=== PATIENT | male | born 1965 | race Two or more races ===

== ENCOUNTER 2024-09-30 21:36 | Inpatient (IN) | payer MEDICAID, OTHER ==
[~2024-09-30] VITALS: Ht 175.3 cm; Wt 85.4 kg
[2024-09-30 22:40] LABS: Urine Bacteria None Seen /hpf (None Seen)
[2024-09-30 22:48] LABS: Basophils # (auto) 0 10 ^3/uL (0-0.2); Basophils % (auto) 0.4 % (0.0-2.0); Eosinophils # (auto) 0 10 ^3/uL (0-0.8); Eosinophils % (auto) 0.4 % (0.0-7.0); Hematocrit 41.7 % (41.0-53.0); Lymphocytes # (auto) 2.1 10 ^3/uL (0.4-5.4); Lymphocytes % (auto) 19.2 % (10.0-50.0); Mean Corpuscular Hemoglobin 30.9 pg (28.0-32.0); Mean Corpuscular Hgb Conc. 33.5 g/dL (32.0-36.0); Mean Corpuscular Volume 92.2 fL (80.0-100.0); Monocytes # (auto) 0.8 10 ^3/uL (0-1.3); Monocytes % (auto) 7.3 % (0.0-12.0); Neutrophils # (auto) 8.1 10 ^3/uL (1.6-8.6); Neutrophils % (auto) 72.7 % (37.0-80.0); Platelet Count (auto) 291 10^3/uL (140-450); Red Blood Cells 4.52 10^6/uL (4.5-5.90); Red Cell Distribution Width 14.3 % (11.8-14.3); White Blood Cell 11.1 10^3/uL (4.4-10.8)
[2024-09-30 22:49] LABS: Urine Blood 3+ /uL (Negative); Urine Clarity Clear (Clear); Urine Color Yellow (Yellow); Urine Hyaline Cast FEW /lpf (0 - 2); Urine Mucus FEW (None Seen); Urine Protein, UAD 1+ (Negative); Urine Specific Gravity 1.027 (1.001-1.035); Urine Squamous Epithelial Cell FEW /hpf (<5); Urine Urobilinogen Normal (Negative); Urine WBC 10 /HPF (0-3); Urine pH 5.5 (5.0-9.0)
[2024-09-30 23:04] LABS: Alanine Aminotransferase 33 U/L (7-40); Albumin 4.6 g/dL (3.2-4.8); Anion Gap 7 (5-15); Aspartate Aminotransferase 29 U/L (13-40); BUN/Creatinine Ratio 23.2 (10.0-20.0); Blood Urea Nitrogen 19 mg/dL (9-23); Calcium 9.6 mg/dL (8.7-10.4); Carbon Dioxide 28 mmol/L (20-31); Chloride 106 mmol/L (98-107); Glucose 91 mg/dL (74-106); Potassium 3.9 mmol/L (3.5-5.1); Sodium 141 mmol/L (136-145); Total Protein 7.7 g/dL (5.7-8.2)
[2024-09-30 23:05] LABS: Bilirubin, Total 0.6 mg/dL (0.2-1.0)
[2024-09-30 23:12] LABS: Alkaline Phosphatase 128 U/L (46-116)
--- NOTE | 2024-09-30 23:30 | DVH ---
Exam: CT CT AB PEL WO CON-NO ORAL OR IV History: R flank pain Comparison Study: None available at time of dictation. Technique: Multidetector spiral CT of the abdomen was performed from lung bases to pubic symphysis. I maging was performed without IV contrast. Axial, coronal and sagittal multiplanar reformats were obta ined from the axial data set by the technologist. Radiation Dose : 1. Abdomen/Pelvis: CTDIvol 9 mGy, DLP 529 mGy*cm. Findings: Evaluation of solid organs is limited due to lack of intravenous contrast use. Lung Bases: No acute or significant lung base finding. Normal heart size. No pleural or pericardial effusion. Liver: The liver is normal in size. No focal lesions. Gallbladder and Biliary Tree: Layering small gallstones. Spleen: Unremarkable Pancreas: The pancreas is grossly normal in appearance. Adrenal Glands: Unremarkable Kidneys: Moderate right-sided hydronephrosis with a 3 cm staghorn calculi. Bladder: Grossly unremarkable for degree of distention. Bowel: The stomach is grossly normal in appearance. Small bowel and colon are normal in caliber and d istribution. The appendix is not visualized; however, no secondary findings of acute appendicitis kyara ntified. Ascites: Absent Lymphadenopathy: No mesenteric, retroperitoneal or periportal lymphadenopathy. Abdominal Wall and Mesentery: Unremarkable. Vasculature: The visualized abdominal aorta is normal in size and caliber. Evaluation of abdominal a nd pelvic vessels is limited due to lack of intravenous contrast. Pelvic Organs: Unremarkable Musculoskeletal: No aggressive focal bony lesions, acute fractures or dislocation. Healing right rib fracture IMPRESSION: Moderate right-sided hydronephrosis with a 3 cm staghorn calculi. Cholelithiasis. Healing right lateral 7th rib fracture. END IMPRESSION:
[2024-10-01] MEDS: SODIUM CHLORIDE 0.9% 1,000 ML IV ONE (01:14)
[2024-10-01] MEDS: LOPERAMIDE HCL 2 MG CAP/TAB PO ONE (01:15)
[2024-10-01] MEDS: KETOROLAC TROMETH 30 MG/ML 1ML VIAL IV ONE (01:18)
[2024-10-01] MEDS: PANTOPRAZOLE 40 MG/10 ML VIAL INJ IV ONE (01:18)
--- NOTE | 2024-10-01 01:32 | ED.PDOC ---
History of Present Illness HPI Comments 59-year-old male with a history of diabetes brought in by family complaining of right flank pain for the last 2 days, associated with several episodes of diarrhea. Patient denies fever, nausea, vomiting, hematuria, or dysuria. He denies any recent antibiotic use or abdominal pain. Chief Complaint: Flank Pain Time Seen by MD: 21:56 Primary Care Provider: Dr. Caldwell Allergies: Coded Allergies: Morphine (Verified Allergy, Unknown, 09/30/24) Mode of Arrival: Ambulatory Past Medical History PAST MEDICAL HISTORY: DM Surgical History: Denies all surgeries Family History Family History: Reviewed,noncontributory to illness Social History Smoker: Non-Smoker Alcohol: Denies ETOH Use Drugs: Denies Drug Use Lives In: Home All Other Systems: Reviewed and Negative (Comprehensive systems review obtained and negative except for what is stated in the HPI.) Physical Exam General Appearance: No Apparent Distress HEENT: Other (Pupils and face symmetric. Moist mucous membranes.) Neck: Full Range of Motion, Normal Inspection Respiratory: Lungs Clear, No Accessory Muscle Use, No Respiratory Distress, Normal Breath Sounds Cardiovascular: No Edema, No JVD, Regular Rate/Rhythm Breast Exam: Deferred Gastrointestinal: Soft, Other (Right upper flank tenderness to palpation) Genitalia: Deferred Pelvic: Deferred Rectal: Deferred Extremities: Normal inspection, Normal range of motion, Non-tender, No pedal edema Neurologic: Alert (Oriented x4), Normal Affect, Normal Mood, Other (Ambulatory without difficulty) Cerebellar Function: NOT DONE Reflexes: NOT DONE Skin: Dry, Normal Color, Warm Lymphatic: NOT DONE Was a procedure done? Was a procedure done?: No Differential Dx Considerations may include: Musculoskeletal pain, UTIs, pyelonephritis, nephrolithiasis, urolithiasis, urinary obstruction, colitis, diverticular disease, electrolyte imbalance, dehydration/hypovolemia, among others X-Ray, Labs, Meds, VS Vital Signs Date Time Temp Pulse Resp B/P (MAP) Pulse Ox O2 Delivery O2 Flow Rate FiO2 10/01/24 01:16 68 18 100 Room Air 10/01/24 01:16 57 18 122/76 (91) 100 09/30/24 22:08 98.0 80 16 109/75 (86) 99 98.0 Lab Test 09/30/24 22:19 09/30/24 22:09 09/30/24 22:08 Range/Units White Blood Count 11.1 H 4.4-10.8 10^3/uL Red Blood Count 4.52 4.5-5.90 10^6/uL Hemoglobin 14.0 13.5-17.5 g/dL Hematocrit 41.7 41.0-53.0 % Mean Corpuscular Volume 92.2 80.0-100.0 fL Mean Corpuscular Hemoglobin 30.9 28.0-32.0 pg Mean Corpuscular Hemoglobin Concent 33.5 32.0-36.0 g/dL Red Cell Distribution Width 14.3 11.8-14.3 % Platelet Count 291 140-450 10^3/uL Mean Platelet Volume 7.3 6.9-10.8 fL Neutrophils (%) (Auto) 72.7 37.0-80.0 % Lymphocytes (%) (Auto) 19.2 10.0-50.0 % Monocytes (%) (Auto) 7.3 0.0-12.0 % Eosinophils (%) (Auto) 0.4 0.0-7.0 % Basophils (%) (Auto) 0.4 0.0-2.0 % Neutrophils # (Auto) 8.1 1.6-8.6 10 ^3/uL Lymphocytes # (Auto) 2.1 0.4-5.4 10 ^3/uL Monocytes # (Auto) 0.8 0-1.3 10 ^3/uL Eosinophils # (Auto) 0 0-0.8 10 ^3/uL Basophils # (Auto) 0 0-0.2 10 ^3/uL Nucleated Red Blood Cells 0.0 % Sodium Level 141 136-145 mmol/L Potassium Level 3.9 3.5-5.1 mmol/L Chloride Level 106 98-107 mmol/L Carbon Dioxide Level 28 20-31 mmol/L Anion Gap 7 5-15 Blood Urea Nitrogen 19 9-23 mg/dL Creatinine 0.82 0.700-1.30 mg/dL Glomerular Filtration Rate Calc 102 >90 mL/min BUN/Creatinine Ratio 23.2 H 10.0-20.0 Serum Glucose 91 74-106 mg/dL Lactic Acid Level 0.7 0.4-2.0 mmol/L Calcium Level 9.6 8.7-10.4 mg/dL Total Bilirubin 0.6 0.2-1.0 mg/dL Aspartate Amino Transferase (AST) 29 13-40 U/L Alanine Aminotransferase (ALT) 33 7-40 U/L Alkaline Phosphatase 128 H 46-116 U/L Total Protein 7.7 5.7-8.2 g/dL Albumin 4.6 3.2-4.8 g/dL POC Glucose 85 70-106 mg/dl Urine Color Yellow Yellow Urine Clarity Clear Clear Urine pH 5.5 5.0-9.0 Urine Specific [place] 1.027 1.001-1.035 Urine Protein 1+ H Negative Urine Ketones Negative Negative Urine Blood 3+ H Negative /uL Urine Nitrite Negative Negative Urine Bilirubin Negative Negative Urine Urobilinogen Normal Negative mg/dL Urine Leukocyte Esterase 1+ Negative /uL Urine RBC 65 0 - 3 /hpf Urine Microscopic WBC 10 H 0-3 /HPF Urine Squamous Epithelial Cells Few <5 /hpf Urine Bacteria None seen None Seen /hpf Urine Hyaline Casts Few 0 - 2 /lpf Urine Mucus Few None Seen Urine Glucose Normal Normal mg/dL Current Medications Medications (Trade) Dose Ordered Sig/Alison Route Start Time Stop Time Status Last Admin Sodium Chloride 1,000 ml @ 1,000 mls/hr Q1H ONCE IV 09/30/24 22:15 09/30/24 23:14 DC 10/01/24 01:14 Loperamide HCl (Imodium Capsule) 4 mg ONCE ONCE PO 09/30/24 22:15 09/30/24 22:16 DC 10/01/24 01:15 PROCEDURE(s): ABPL - CT AB PEL WO CON-NO ORAL OR IV REASON: R flank pain ORDER NUMBER(s): [id number], ACCESSION NUMBER(s): [id number] Exam: CT CT AB PEL WO CON-NO ORAL OR IV History: R flank pain Comparison Study: None available at time of dictation. Technique: Multidetector spiral CT of the abdomen was performed from lung bases to pubic symphysis. Imaging was performed without IV contrast. Axial, coronal and sagittal multiplanar reformats were obtained from the axial data set by the technologist. Radiation Dose : 1. Abdomen/Pelvis: CTDIvol 9 mGy, DLP 529 mGy*cm. Findings: Evaluation of solid organs is limited due to lack of intravenous contrast use. Lung Bases: No acute or significant lung base finding. Normal heart size. No pleural or pericardial effusion. Liver: The liver is normal in size. No focal lesions. Gallbladder and Biliary Tree: Layering small gallstones. Spleen: Unremarkable Pancreas: The pancreas is grossly normal in appearance. Adrenal Glands: Unremarkable Kidneys: Moderate right-sided hydronephrosis with a 3 cm staghorn calculi. Bladder: Grossly unremarkable for degree of distention. Bowel: The stomach is grossly normal in appearance. Small bowel and colon are normal in caliber and distribution. The appendix is not visualized; however, no secondary findings of acute appendicitis identified. Ascites: Absent Lymphadenopathy: No mesenteric, retroperitoneal or periportal lymphadenopathy. Abdominal Wall and Mesentery: Unremarkable. Vasculature: The visualized abdominal aorta is normal in size and caliber. Evaluation of abdominal and pelvic vessels is limited due to lack of intravenous contrast. Pelvic Organs: Unremarkable Musculoskeletal: No aggressive focal bony lesions, acute fractures or dislocation. Healing right rib fracture IMPRESSION: Moderate right-sided hydronephrosis with a 3 cm staghorn calculi. Cholelithiasis. Healing right lateral 7th rib fracture. END IMPRESSION: X-Ray, Labs, Meds, VS Comment 59-year-old male with a history of diabetes complaining of right-sided flank pain and diarrhea Vitals unremarkable Exam remarkable for right upper flank tenderness to palpation Rhythm strip independently interpreted by me: Sinus rhythm, rate 80, no ectopy. CT abdomen and pelvis IMPRESSION: Moderate right-sided hydronephrosis with a 3 cm staghorn calculi. Cholelithiasis. Healing right lateral 7th rib fracture. CBC remarkable for WBC 11.1, CMP unremarkable, lactate normal, UA positive for protein, blood, leukocyte esterase, RBCs and WBCs Patient treated with the following in the ED: 1 L 0.9 normal saline IV bolus, Toradol 30 mg IV, Protonix 40 mg IV, loperamide 4 mg p.o. , Rocephin 1 g IV On re-evaluation, patient states pain has somewhat improved. Vitals were stable. Plan is to admit the patient for IV antibiotics and Urology consultation. Time of 1ST Reevaluation: : Reevaluation 1ST: Improved Patient Education/Counseling: Diagnosis, Treatment Family Education/Counseling: No Family Present Departure 1 Departure Time of Disposition: Impression: Primary Impression: Hydronephrosis concurrent with and due to calculi of kidney and ureter Additional Impressions: UTI (urinary tract infection) Qualified Codes: N39.0 - Urinary tract infection, site not specified Diarrhea Qualified Codes: R19.7 - Diarrhea, unspecified Disposition: ADMITTED INPATIENT Admit to: Med Surg Condition: Guarded Critical Care Note Critical Care Time?: No Stability Stability form required: No Heart Score Heart Score: Heart Score Response (Comments) Value History N/A 0 EKG N/A 0 Age N/A 0 Risk Factors N/A 0 Troponin N/A 0 Total 0 ROSALINDA ARREGUIN MD Oct 01, 2024 01:32
[2024-10-01] MEDS: cefTRIAXone 1GM/50ML D5W 50 ML IV ONE (01:47)
[2024-10-01] MEDS ORDERED: ACETAMINOPHEN 325 MG TAB PO PRN (03:30)
--- NOTE | 2024-10-01 03:37 | DVHHPRES ---
History of Present Illness Resident Creating Document: AMANDEEP MACIAS RESIDENT History of Present Illness Patient is a 59-year-old male with past medical history of diabetes, dyslipidemia, hypertension who comes in due to a right-sided flank pain. According to the patient, yesterday on 09/30/2024 he started experiencing a right-sided flank pain which progressively worsened, he describes it as a pressure-like pain intermittent in nature and 8/10 in intensity without any exacerbating or relieving factors. Patient also notes diarrhea that has been ongoing during the same time. Which started after he ate ham. On review of systems patient is complaining of fatigue, shortness of breath on exertion and hematuria. CT abdomen pelvis showed right sided hydronephrosis with a 3 cm staghorn calculus. Past Medical History Diabetes, hyperlipidemia, hypertension Past Surgical History Denies Past Social History Smokin-4 cigarettes per day for the last 40 years Alcohol: Denies Drugs: Denies Review of Systems Constitutional: Yes: Malaise; No: Fever, Chills, Sweats, Weakness, Other Eyes: No: Pain, Vision change, Conjunctivae inflammation, Eyelid inflammation, Other, Redness ENT: No: Ear pain, Ear discharge, Nose pain, Nose discharge, Nose congestion, Mouth pain, Mouth swelling, Throat pain, Throat swelling, Other Respiratory: SOB with excertion; No: Cough, Dry, Shortness of breath, Wheezing, Hemoptysis, Pleuritic Pain, Sputum, Wheezing, Other Cardiovascular: No: Chest Pain, Palpitations, Orthopnea, Paroxysmal Noc. Dys pnea, Edema, Lt Headedness, Other Gastrointestinal: No: Nausea, Vomiting, Abdominal Pain, Diarrhea, Constipation, Melena, Hematochezia, Other Genitourinary: No Dysuria, No Frequency, No Incontinence; Hematuria; No Retention, No Other Musculoskeletal: No: other, neck pain, shoulder pain, arm pain, back pain, hand pain, leg pain, foot pain Skin: No: Rash, Lesions, Jaundice, Bruising, Other Neurological: No: Weakness, Numbness, Incoordination, Change in speech, Confusion, Seizures, Other Allergies: Coded Allergies: Morphine (Verified Allergy, Unknown, 09/30/24) Exam Vital Signs Vital Signs Date Time Temp Pulse Resp B/P (MAP) Pulse Ox O2 Delivery O2 Flow Rate FiO2 10/01/24 01:16 68 18 100 Room Air 10/01/24 01:16 122/76 (91) 09/30/24 22:08 98.0 98.0 General Appearance: Alert, Oriented X3, Cooperative, No acute distress HEENT: Atraumatic, PERRLA, EOMI, Mucous membr. moist/pink Respiratory: Clear to auscultation, Normal air movement Cardiovascular: Regular rate, Normal S1, Normal S2 Abdominal: Normal bowel sounds, Soft, Other (Bilateral flank pain, right greater than left) Extremities: Other (Trace lower extremity edema) Skin: No rashes Neuro: Normal gait, Normal speech, Strength at 5/5 X4 ext, Sensation intact Psych/Mental Status: Mental status NL, Mood NL Labs/Xrays Labs Test 09/30/24 22:19 09/30/24 22:09 09/30/24 22:08 Range/Units White Blood Count 11.1 H 4.4-10.8 10^3/uL Red Blood Count 4.52 4.5-5.90 10^6/uL Hemoglobin 14.0 13.5-17.5 g/dL Hematocrit 41.7 41.0-53.0 % Mean Corpuscular Volume 92.2 80.0-100.0 fL Mean Corpuscular Hemoglobin 30.9 28.0-32.0 pg Mean Corpuscular Hemoglobin Concent 33.5 32.0-36.0 g/dL Red Cell Distribution Width 14.3 11.8-14.3 % Platelet Count 291 140-450 10^3/uL Mean Platelet Volume 7.3 6.9-10.8 fL Neutrophils (%) (Auto) 72.7 37.0-80.0 % Lymphocytes (%) (Auto) 19.2 10.0-50.0 % Monocytes (%) (Auto) 7.3 0.0-12.0 % Eosinophils (%) (Auto) 0.4 0.0-7.0 % Basophils (%) (Auto) 0.4 0.0-2.0 % Neutrophils # (Auto) 8.1 1.6-8.6 10 ^3/uL Lymphocytes # (Auto) 2.1 0.4-5.4 10 ^3/uL Monocytes # (Auto) 0.8 0-1.3 10 ^3/uL Eosinophils # (Auto) 0 0-0.8 10 ^3/uL Basophils # (Auto) 0 0-0.2 10 ^3/uL Nucleated Red Blood Cells 0.0 % Sodium Level 141 136-145 mmol/L Potassium Level 3.9 3.5-5.1 mmol/L Chloride Level 106 98-107 mmol/L Carbon Dioxide Level 28 20-31 mmol/L Anion Gap 7 5-15 Blood Urea Nitrogen 19 9-23 mg/dL Creatinine 0.82 0.700-1.30 mg/dL Glomerular Filtration Rate Calc 102 >90 mL/min BUN/Creatinine Ratio 23.2 H 10.0-20.0 Serum Glucose 91 74-106 mg/dL Lactic Acid Level 0.7 0.4-2.0 mmol/L Calcium Level 9.6 8.7-10.4 mg/dL Total Bilirubin 0.6 0.2-1.0 mg/dL Aspartate Amino Transferase (AST) 29 13-40 U/L Alanine Aminotransferase (ALT) 33 7-40 U/L Alkaline Phosphatase 128 H 46-116 U/L Total Protein 7.7 5.7-8.2 g/dL Albumin 4.6 3.2-4.8 g/dL POC Glucose 85 70-106 mg/dl Urine Color Yellow Yellow Urine Clarity Clear Clear Urine pH 5.5 5.0-9.0 Urine Specific [place] 1.027 1.001-1.035 Urine Protein 1+ H Negative Urine Ketones Negative Negative Urine Blood 3+ H Negative /uL Urine Nitrite Negative Negative Urine Bilirubin Negative Negative Urine Urobilinogen Normal Negative mg/dL Urine Leukocyte Esterase 1+ Negative /uL Urine RBC 65 0 - 3 /hpf Urine Microscopic WBC 10 H 0-3 /HPF Urine Squamous Epithelial Cells Few <5 /hpf Urine Bacteria None seen None Seen /hpf Urine Hyaline Casts Few 0 - 2 /lpf Urine Mucus Few None Seen Urine Glucose Normal Normal mg/dL Assessment/Plan Assessment/Plan Right-sided obstructive uropathy due to 3 cm staghorn calculus with associated hydronephrosis Acute complicated UTI - CT abdomen pelvis: Moderate right-sided hydronephrosis with a 3 cm staghorn calculi. Cholelithiasis. Healing right lateral 7th rib fracture. - IV NS 1 L, IV NS maintenance at 100 cc/hour - tamsulosin 0.4 mg - IV ceftriaxone - ketorolac for pain - consulted urology Diabetes Hypertension Dyslipidemia - blood pressure on the soft side - NPO - monitor PUD prophylaxis: protonix 40mg DVT prophylaxis: SCDs Goals of care: Full code, discussed for >16 minutes on 10/01/2024 Plan discussed with patient Plan discussed with Dr. Huddleston Plan discussed with: Patient, Other (RN) Date of Service: Oct 01, 2024 Billing Provider: JAYY HUDDLESTON MD Common Visit Codes: [id number] INP/OBS CARE (HIGH) AMANDEEP MACIAS RESIDENT Oct 01, 2024 03:37 JAYY HUDDLESTON MD Oct 02, 2024 11:42
[2024-10-01 04:33] LABS: Amphetamine Screen, Urine Pos (NEGATIVE); Barbiturate Scree,Urine Neg (NEGATIVE); Benzodiazephine Screen, Urine Neg (NEGATIVE); Cocaine Screen, Urine Neg (NEGATIVE)
[2024-10-01 04:34] LABS: Cannabinoid Screen, Urine Neg (NEGATIVE); Opiate Scree,Urine Neg (NEGATIVE); Phencyclidine Screen, Urine Neg (NEGATIVE)
[2024-10-01 04:53] VITALS: PULSE 63; RESP 16; O2SAT 98
[2024-10-01] MEDS: SODIUM CHLORIDE 0.9% 1,000 ML IV SCH (04:57)
[2024-10-01] MEDS: TAMSULOSIN HYDROCHLORIDE 0.4 MG CAP PO ONE (04:57)
[2024-10-01 05:00] VITALS: BP 117/69; PULSE 51; RESP 19; TEMP 97.4; O2SAT 96
[2024-10-01 05:10] VITALS: BP 112/69; PULSE 54; RESP 18; TEMP 97.4; O2SAT 97
[2024-10-01 05:18] VITALS: PULSE 55; RESP 18; O2SAT 99
[2024-10-01] MEDS: PANTOPRAZOLE 40 MG TAB PO SCH (06:00)
[2024-10-01 08:00] VITALS: PULSE 61; RESP 17; O2SAT 100
[2024-10-01 09:00] VITALS: BP 130/54; PULSE 61; RESP 17; TEMP 97.5; O2SAT 100
[2024-10-01 09:25] LABS: Basophils # (auto) 0 10 ^3/uL (0-0.2); Basophils % (auto) 0.6 % (0.0-2.0); Eosinophils # (auto) 0.1 10 ^3/uL (0-0.8); Hematocrit 38.9 % (41.0-53.0); Hemoglobin 13.2 g/dL (13.5-17.5); Lymphocytes # (auto) 2.5 10 ^3/uL (0.4-5.4); Lymphocytes % (auto) 33.5 % (10.0-50.0); Mean Corpuscular Hemoglobin 31.3 pg (28.0-32.0); Mean Corpuscular Hgb Conc. 33.8 g/dL (32.0-36.0); Mean Corpuscular Volume 92.7 fL (80.0-100.0); Monocytes # (auto) 0.7 10 ^3/uL (0-1.3); Monocytes % (auto) 9.8 % (0.0-12.0); Neutrophils # (auto) 4.1 10 ^3/uL (1.6-8.6); Neutrophils % (auto) 55.1 % (37.0-80.0); Platelet Count (auto) 241 10^3/uL (140-450); Red Cell Distribution Width 14.2 % (11.8-14.3); White Blood Cell 7.4 10^3/uL (4.4-10.8)
[2024-10-01 09:34] LABS: Sodium 141 mmol/L (136-145)
[2024-10-01 09:35] LABS: Anion Gap 5 (5-15); Calcium 8.8 mg/dL (8.7-10.4); Carbon Dioxide 27 mmol/L (20-31)
[2024-10-01 09:40] LABS: BUN/Creatinine Ratio 26.5 (10.0-20.0); Blood Urea Nitrogen 18 mg/dL (9-23); Glucose 86 mg/dL (74-106); Triglycerides 54 mg/dL (< 150)
[2024-10-01 09:42] LABS: Cholesterol 161 mg/dL (< 200); HDL Cholesterol 46 mg/dL (40-59)
[2024-10-01 09:45] LABS: Chloride 109 mmol/L (98-107); Creatine Kinase IFCC 309 U/L (46-171); LDL Cholesterol 105 mg/dL (< 100)
[2024-10-01] MEDS: cefTRIAXone 1GM/50ML D5W 50 ML IV SCH (10:00)
[2024-10-01 10:26] LABS: Folate (Folic Acid) 20.57 ng/mL (>5.38)
--- NOTE | 2024-10-01 11:22 | DVHDSRES ---
Discharge Summary Date of Admission Resident Creating Document: AMANDEEP MACIAS RESIDENT Oct 01, 2024 at 03:30 Date of Discharge: Oct 01, 2024 Admitting Diagnosis Abdominal pain Labs/Diagnostic Data: Laboratory Results Test 10/01/24 09:13 09/30/24 22:19 09/30/24 22:09 09/30/24 22:08 White Blood Count 7.4 10^3/uL (4.4-10.8) Red Blood Count 4.20 10^6/uL (4.5-5.90) Hemoglobin 13.2 g/dL (13.5-17.5) Hematocrit 38.9 % (41.0-53.0) Mean Corpuscular Volume 92.7 fL (80.0-100.0) Mean Corpuscular Hemoglobin 31.3 pg (28.0-32.0) Mean Corpuscular Hemoglobin Concent 33.8 g/dL (32.0-36.0) Red Cell Distribution Width 14.2 % (11.8-14.3) Platelet Count 241 10^3/uL (140-450) Mean Platelet Volume 7.2 fL (6.9-10.8) Neutrophils (%) (Auto) 55.1 % (37.0-80.0) Lymphocytes (%) (Auto) 33.5 % (10.0-50.0) Monocytes (%) (Auto) 9.8 % (0.0-12.0) Eosinophils (%) (Auto) 1.0 % (0.0-7.0) Basophils (%) (Auto) 0.6 % (0.0-2.0) Neutrophils # (Auto) 4.1 10 ^3/uL (1.6-8.6) Lymphocytes # (Auto) 2.5 10 ^3/uL (0.4-5.4) Monocytes # (Auto) 0.7 10 ^3/uL (0-1.3) Eosinophils # (Auto) 0.1 10 ^3/uL (0-0.8) Basophils # (Auto) 0 10 ^3/uL (0-0.2) Nucleated Red Blood Cells 0.0 % Sodium Level 141 mmol/L (136-145) Potassium Level 4.0 mmol/L (3.5-5.1) Chloride Level 109 mmol/L (98-107) Carbon Dioxide Level 27 mmol/L (20-31) Anion Gap 5 (5-15) Blood Urea Nitrogen 18 mg/dL (9-23) Creatinine 0.68 mg/dL (0.700-1.30) Glomerular Filtration Rate Calc 108 mL/min (>90) BUN/Creatinine Ratio 26.5 (10.0-20.0) Serum Glucose 86 mg/dL (74-106) Hemoglobin A1c 5.8 % A1C (<5.7) Calcium Level 8.8 mg/dL (8.7-10.4) Creatine Kinase 309 U/L (46-171) Triglycerides Level 54 mg/dL (< 150) Cholesterol Level 161 mg/dL (< 200) LDL Cholesterol 105 mg/dL (< 100) HDL Cholesterol 46 mg/dL (40-59) Vitamin B12 Level 414 pg/mL (211-911) Vitamin D 25-Hydroxy 28.3 ng/mL (30.0-100) Folic Acid 20.57 ng/mL (>5.38) Thyroid Stimulating Hormone (TSH) 2.41 uIU/mL (0.55-4.78) Lactic Acid Level 0.7 mmol/L (0.4-2.0) Total Bilirubin 0.6 mg/dL (0.2-1.0) Aspartate Amino Transferase (AST) 29 U/L (13-40) Alanine Aminotransferase (ALT) 33 U/L (7-40) Alkaline Phosphatase 128 U/L (46-116) Total Protein 7.7 g/dL (5.7-8.2) Albumin 4.6 g/dL (3.2-4.8) POC Glucose 85 mg/dl (70-106) Urine Color Yellow (Yellow) Urine Clarity Clear (Clear) Urine pH 5.5 (5.0-9.0) Urine Specific [place] 1.027 (1.001-1.035) Urine Protein 1+ (Negative) Urine Ketones Negative (Negative) Urine Blood 3+ /uL (Negative) Urine Nitrite Negative (Negative) Urine Bilirubin Negative (Negative) Urine Urobilinogen Normal mg/dL (Negative) Urine Leukocyte Esterase 1+ /uL (Negative) Urine RBC 65 /hpf (0 - 3) Urine Microscopic WBC 10 /HPF (0-3) Urine Squamous Epithelial Cells Few /hpf (<5) Urine Bacteria None seen /hpf (None Seen) Urine Hyaline Casts Few /lpf (0 - 2) Urine Mucus Few (None Seen) Urine Glucose Normal mg/dL (Normal) Urine Opiates Screen Neg (NEGATIVE) Urine Fentanyl Screen Neg (NEGATIVE) Urine Barbiturates Screen Neg (NEGATIVE) Urine Phencyclidine Screen Neg (NEGATIVE) Urine Amphetamines Screen Pos (NEGATIVE) Urine Benzodiazepines Screen Neg (NEGATIVE) Urine Cocaine Screen Neg (NEGATIVE) Urine Cannabinoids Screen Neg (NEGATIVE) Other Laboratory Tests 10/01/24 09:13 Brief Hx & Hospital Course: Patient is a 59-year-old male with past medical history of diabetes, dyslipidemia, hypertension who comes in due to a right-sided flank pain. According to the patient, yesterday on 09/30/2024 he started experiencing a right-sided flank pain which progressively worsened, he describes it as a pressure-like pain intermittent in nature and 8/10 in intensity without any exacerbating or relieving factors. Patient also notes diarrhea that has been ongoing during the same time. Which started after he ate ham. On review of systems patient is complaining of fatigue, shortness of breath on exertion and hematuria. CT abdomen pelvis showed right sided hydronephrosis with a 3 cm staghorn calculus. Past Medical History Diabetes, hyperlipidemia, hypertension Past Surgical History Denies Past Social History Smokin-4 cigarettes per day for the last 40 years Hospital course: The patient was admitted for the management of renal cell leading to hydronephrosis. CT scan showed moderate right-sided hydronephrosis with a 3 cm staghorn calculi,cholelithiasis and healing right lateral 7th rib fracture. Patient was started on IV fluid, tamsulosin, and pain management. Urology consulted. On 10/01/2024, the patient was seen and examined at the bedside. Patient was feeling better since admission, but still was complaining of abdominal pain. Later the patient states they want to leave the hospital Against Medical Advice (AMA). Patient encouraged to stay for further treatment/stabilization. Patient advised of the risks and benefits of leaving AMA. Patient verbalized understanding. Patient encouraged to return to the ER if symptoms do not improve or worsen. Operations or Procedures [facility] [id number] [place] [id number] Ph: [phone] DIAGNOSTIC IMAGING Diagnostic Imaging Report : [id number] Signed PATIENT: KURT FAROOQ: [id number] UNIT: [id number] : 1965 LOC: ER ROOM / BED: / AGE / SEX: 59 / M ADM STATUS: REG ER SERVICE 10 ORDERING PHYSICIAN: ROSALINDA ARREGUIN MD PROCEDURE(s): ABPL - CT AB PEL WO CON-NO ORAL OR IV REASON: R flank pain ORDER NUMBER(s): [id number], ACCESSION NUMBER(s): [id number] Exam: CT CT AB PEL WO CON-NO ORAL OR IV History: R flank pain Comparison Study: None available at time of dictation. Technique: Multidetector spiral CT of the abdomen was performed from lung bases to pubic symphysis. Imaging was performed without IV contrast. Axial, coronal and sagittal multiplanar reformats were obtained from the axial data set by the technologist. Radiation Dose : 1. Abdomen/Pelvis: CTDIvol 9 mGy, DLP 529 mGy*cm. Findings: Evaluation of solid organs is limited due to lack of intravenous contrast use. Lung Bases: No acute or significant lung base finding. Normal heart size. No pleural or pericardial effusion. Liver: The liver is normal in size. No focal lesions. Gallbladder and Biliary Tree: Layering small gallstones. Spleen: Unremarkable Pancreas: The pancreas is grossly normal in appearance. Adrenal Glands: Unremarkable Kidneys: Moderate right-sided hydronephrosis with a 3 cm staghorn calculi. Bladder: Grossly unremarkable for degree of distention. Bowel: The stomach is grossly normal in appearance. Small bowel and colon are normal in caliber and distribution. The appendix is not visualized; however, no secondary findings of acute appendicitis identified. Ascites: Absent Lymphadenopathy: No mesenteric, retroperitoneal or periportal lymphadenopathy. Abdominal Wall and Mesentery: Unremarkable. Vasculature: The visualized abdominal aorta is normal in size and caliber. Evaluation of abdominal and pelvic vessels is limited due to lack of intravenous contrast. Pelvic Organs: Unremarkable Musculoskeletal: No aggressive focal bony lesions, acute fractures or dislocation. Healing right rib fracture IMPRESSION: Moderate right-sided hydronephrosis with a 3 cm staghorn calculi. Cholelithiasis. Healing right lateral 7th rib fracture. END IMPRESSION: ATED BY: NANDO MARRUFO DO DICTATED DATE/TIME: 09/30/242326 SIGNED BY: NANDO MARRUFO DO SIGNED DATE/TIME: 09/30/242326 CC: Condition at Discharge: Undetermined Final Diagnosis/Problems List Right-sided obstructive uropathy due to 3 cm staghorn calculus with associated moderate hydronephrosis Right-sided moderate hydronephrosis Acute complicated UTI Sirs positive with no end-organ damage Diabetes Hypertension Dyslipidemia Current smoker, patient counseled for more than 18 minutes for smoking cessation. Methamphetamine use disorder Discharge Disposition: AMA Discharge Statement: "Patient was advised to return to the ER or call 911 if any headaches, dizziness, shortness of breath, chest pain, abdominal pain, bleeding, fevers, or worsening of medical condition. Patient was counseled about treatment plan, medications, possible side effects, patientverbalized understanding. All questions were answered to the best of my ability. This discharge took greater then 30 minutes in planning, reviewing documentation, counseling the patient, and discussing with other team members." ASSESSMENT ASSESSMENT Assessment CURLY MCMAHAN Oct 01, 2024 11:22
--- NOTE | 2024-10-01 13:07 | DVHSR ---
APPROVED REPORT EXAM: LIMITED Two-dimensional and M-mode echocardiogram with Doppler and color Doppler. Blood Pressure: 112/69 mmHg INDICATION Dyspnea RISK FACTORS Height: 5'9, Weight: 188 DIMENSIONS LVDd4.5 (3.8-5.7cm)LA (2D)3.3 (1.9-4.0cm)Aortic Root3.3 (2.0-3.7cm) LVDs3.3 (2.5-4.0cm)LA (MM) (1.9-4.0cm)Aortic Cusp Exc1.9 (1.5-2.0cm) EF (%) 55.0 (55-70%)Rt. Atrium3.4 (1.9-4.0cm)Asc. Aorta cm IVSd1.0 (0.7-1.1cm)RV (D) (1.8-2.4cm) PWd0.4 (0.7-1.1cm) Mitral Valve MitralMitral Stenosis E wave0.59m/sMV Mean GR.mmHg A wave0.74m/sMV Peak GR.mmHg E/A ratio0.82D MVAcm2 DECEL [id number] 1/2 [place] Aortic Valve Aortic ValveAortic Stenosis V11.02m/Yanni Mean GR.6mmHg V21.62m/Yanni Peak GR.10mmHg LVOT Diameter2.1 (1.8-2.4cm)Doppler AVA2.18cm2 Other Information Quality : Technically LimitedRhythm : Technically limited study due to pt wanted to ama before exam was finished Conclusion LVEF normal at 55-60% Normal rv function
[2024-10-01] MEDS ORDERED: TAMSULOSIN HYDROCHLORIDE 0.4 MG CAP PO SCH (18:00)
== END 2024-10-01 10:57 | disposition left against medical advice (07) | DRG 463 ==
LOC: ER 21:36 → OVERFLOW 10-01 03:30 → CENTRAL 10-01 05:15
PROVIDERS: ADMIT Student in an Organized Health Care Education/Training Program; ATTEND Student in an Organized Health Care Education/Training Program
DX: N13.6 Pyonephrosis (principal); R65.10 Systemic inflammatory response syndrome (SIRS) of non-infectious origin without acute organ dysfunction; I10 Essential (primary) hypertension; N20.0 Calculus of kidney; Z53.29 Procedure and treatment not carried out because of patient's decision for other reasons; E11.9 Type 2 diabetes mellitus without complications; E78.5 Hyperlipidemia, unspecified; K80.20 Calculus of gallbladder without cholecystitis without obstruction; F15.10 Other stimulant abuse, uncomplicated; Z79.899 Other long term (current) drug therapy
CPT/HCPCS: 36415; 74176; 80048; 80053; 80061; 80307; 81001; 82306; 82550; 82607; 82746; 82962; 83036; 83605; 84443; 85025; 87040; 87086; 93306; G0378; J1885; J2470